=== PATIENT | male | born 1940 | race Caucasian/White ===

== ENCOUNTER 2017-05-06 09:34 | Outpatient (CLI) | payer MEDICARE, BC ==
[2017-05-06 11:28] LABS: Prothrombin Time 14.2 SEC (12.0-14.7)
[2017-05-06 11:29] LABS: PTT 27.1 SEC (22.9-36.1)
--- NOTE | 2017-05-06 14:08 | RAD ---
TWO VIEWS CHEST: HISTORY: Preoperative chest radiograph. TECHNIQUE: PA and lateral views of the chest are obtained. FINDINGS: The lungs are well aerated. No evidence of active intrathoracic disease is seen. No evidence of ef fusions, pneumonia, or pneumothorax is seen. IMPRESSION: Normal two views chest. POS: [facility]
== END 2017-05-06 09:35 | disposition home or self-care (01) ==
LOC: LABBT 09:34
PROVIDERS: ATTEND Orthopaedic Surgery Hand Surgery
DX: Z01.818 Encounter for other preprocedural examination (principal); M25.332 Other instability, left wrist
CPT/HCPCS: 71020; 85610; 85730

== ENCOUNTER 2017-05-10 07:12 | Day surgery (SDC) | payer MEDICARE, BC ==
[2017-05-06 09:59] VITALS: BMI 27.4
[2017-05-10] MEDS ORDERED: CEFAZOLIN/Water 2 GM/20 ML SYRINGE ONE (08:19)
== END 2017-05-10 10:35 | disposition home or self-care (01) ==
LOC: SDC 07:12
PROVIDERS: ATTEND Orthopaedic Surgery Hand Surgery
DX: M25.332 Other instability, left wrist (principal); Z53.8 Procedure and treatment not carried out for other reasons; M19.132 Post-traumatic osteoarthritis, left wrist; I10 Essential (primary) hypertension; N52.9 Male erectile dysfunction, unspecified; N40.0 Benign prostatic hyperplasia without lower urinary tract symptoms; Z88.8 Allergy status to other drugs, medicaments and biological substances; Z79.82 Long term (current) use of aspirin; Z79.899 Other long term (current) drug therapy; Z98.890 Other specified postprocedural states; Z82.3 Family history of stroke

== ENCOUNTER 2017-08-09 07:52 | Outpatient (CLI) | payer MEDICARE, BC ==
--- NOTE | 2017-08-09 09:31 | CT ---
CT CHEST WITH CONTRAST: HISTORY: Q79.1, diaphragmatic eventration. COMPARISON: Radiographs of 05/06/17. FINDINGS: The lungs are clear. No pneumothorax. No effusion. There is mild atelectatic change in the right lower lobe. There is right mid diaphragmatic eventrati on. There is also a focal area of left mid diaphragm eventration. Atelectasis is also present in th e left lung base. There are calcified granulomas in the lungs. Calcified subcarinal lymph nodes. The thyroid is unrem arkable. Heart size upper limits of normal. No pericardial effusion. Mild prominence of the right and left pulmonary arteries. There are multiple hypodensities throughout the liver, too small to characterize. Clavicles, sternum, and manubrium are all within normal limits. No acute rib fracture. IMPRESSION: 1. Bilateral diaphragmatic eventration. 2. Evidence of prior granulomatous disease. 3. Incompletely evaluated mild dilatation of the second portion of the duodenum appears to be due to a diverticulum. POS: [facility]
== END 2017-08-09 07:53 | disposition home or self-care (01) ==
LOC: CT 07:52
PROVIDERS: ATTEND Family Medicine
DX: Q79.1 Other congenital malformations of diaphragm (principal); D71 Functional disorders of polymorphonuclear neutrophils
CPT/HCPCS: 71260

== ENCOUNTER 2020-01-29 16:23 | Observation (INO) | payer MEDICARE, BC ==
[~2020-01-29 16:23] MED LIST: Iopamidol-370 76% 500 ML 1 ML ONE
--- NOTE | 2020-01-29 16:42 | CT ---
CT BRAIN NONCONTRAST: DATE: 01/29/2020 HISTORY: 79-year-old male with altered mental status. This level 1 stroke alert report was given verbally by Dr. Oliva to Dr. Angulo of the ER at 4:39 PM 01/09. FINDINGS: There is no evidence of acute intra-axial or extra-axial hemorrhage. There is no midline shift or any other mass effect. There is no extra-axial fluid collection. There is no evidence of obstructive hydrocephalus. Calvarium is intact. IMPRESSION: No acute intracranial findings.
[2020-01-29 16:47] LABS: #Eosinphils 0.1 thou/uL (0.0-0.7); #Monocytes 0.6 thou/uL (0.11-0.59); #Neutrophils 3.2 thou/uL (1.40-6.50); %Basophils 0.5 % (0.0-1.0); %Eosinophils 2.4 % (0.0-10.0); %Monocytes 10.6 % (0.0-10.0); %Neutrophils 53.4 % (42.0-75.0); Hemoglobin 13.5 g/dL (14.0-18.0); Mean Corpuscular HGB CONC 33.9 g/dL (32.0-36.0); Mean Corpuscular Volume 94.3 fL (78.0-98.0); Mean Platelet Volume 8.3 fL (7.4-10.4); Platelet Count 209 thou/uL (130-400); RBC Distribution Width 12.7 % (11.5-14.5); Red Blood Cell (RBC) Count 4.22 mill/uL (4.70-6.10); White Blood Cell (WBC) Count 6.1 thou/uL (4.8-10.8)
[2020-01-29 16:53] LABS: Prothrombin Time 13.2 sec (12.0-14.7)
[2020-01-29 17:16] LABS: ALT (SGPT) 34 U/L (8-55); AST (SGOT) 34 U/L (5-34); Albumin 4.6 g/dL (3.4-4.8); Alkaline Phosphatase 71 U/L (40-110); Anion Gap 15 mmol/L (10-20); BUN (Urea Nitrogen) 25 mg/dL (8.4-25.7); Bilirubin, Total 0.7 mg/dL (0.2-1.2); CK (CPK) 709 U/L (30-200); Calc. Creatinine Clearance 0 mL/min (70-130); Carbon Dioxide 23 mmol/L (23-31); Chloride 104 mmol/L (98-107); Estimated GFR-MDRD 48; Globulin 3.9 g/dL (2.4-3.5); Glucose 114 mg/dL (83-110); Potassium 3.8 mmol/L (3.5-5.1); Protein, Total 8.5 g/dL (5.8-8.1); Sodium 138 mmol/L (136-145)
--- NOTE | 2020-01-29 17:45 | CT ---
EXAM: CT angiogram head and neck with IV contrast and 3-D reconstructions PROVIDED CLINICAL HISTORY: Altered mental status. Confusion for one and a half hours. COMPARISON: None FINDINGS: Vascular calcifications are seen in the aortic arch. There is a normal arrangement of the great vesse ls at the aortic arch which are patent with minimal scattered vascular calcifications. The innominate artery and right subclavian artery are patent. Portion of the left subclavian artery i s obscured due to dense contrast within venous structures. Bilateral common carotid arteries are patent. Vascular calcifications are seen in the carotid artery bifurcations, but the bilateral internal carotid arteries are patent. Vertebral arteries are patent. There is questionable small fenestration within the base of the basila r artery. Basilar artery is otherwise patent. Bilateral posterior cerebral arteries are patent. Bilateral anterior cerebral and middle cerebral arteries are patent without evidence of a significant focal stenosis or branch occlusion. Posterior communicating artery on the right is patent. The left posterior communicating artery is not visualized and may be small or absent either which is a no rmal variant. No focal aneurysm is seen based on this exam. Vascular calcifications are seen in the visualized coronary arteries. Prominent calcified subcarinal lymph node is seen. Visualized upper lobes are clear. IMPRESSION: 1. Patent bilateral internal carotid arteries and vertebral arteries. 2. No focal stenosis or branch occlusion is seen involving the [place] or vertebrobasilar ar teries.
[2020-01-29] MEDS ORDERED: Aspirin Chewable 81 MG TAB ONE (18:09)
[2020-01-29 18:45] LABS: Acetaminophen Less than 6.0 mcg/mL (10.0-30.0); Alcohol Less than 10 mg/dL (Less than 10); Salicylate Less than 8.0 mg/dL (15.0-30.0)
[2020-01-29 19:04] LABS: Bilirubin Negative (Negative); Blood, Urine Negative (Negative); Clarity Clear (Clear); Glucose, Urine (Dipstick) Normal (Negative); Ketone, Urine Negative (Negative); Leukocyte Negative Leu/uL (Negative); Nitrite Negative (Negative); Protein, Urine (Dipstick) Negative (Neg-Trace); Specific Gravity, Urine 1.024 (1.002-1.036); Urobilinogen Normal mg/dL (Less than 2)
--- NOTE | 2020-01-29 19:22 | PDOC.HHP ---
Hospitalist HPI - History of Present Illness AMS History of Present Illness: 79-year-old gentleman with past medical history of hypertension, BPH, hyperlipidemia, and osteoarthritis presents with altered mental status. His family at bedside is able to aid in history. Patient is currently alert to self , he knows he is in the hospital and able to identify [place], [place]. Patient does not know the year. Patient does know his date, though he does not know how old he is. Patient does not know the events that have happened today, this was a rapid decline starting at about 3 PM, prior to this he was completely normal. There are no new medications, no alcohol, or other things to explain such a rapid decline. Patient's family is at bedside and able to head up operator helper in history. Normal he is a very high functioning status, he walks 4 miles per day. He gardens daily. Patient is very healthy for his age taking only medications for blood pressure and hyperlipidemia. At about 3 PM he was not acting himself family were concerned and brought him into acute care hospital for further evaluation. Patient was very forgetful and has repetitive questions and statements. In the time of my interview he tells me three times the same statement and he does not recall that he is told me already. Review of systems is ortherwise benign, no CP, SOB, Syncope, vision change, N/V/D, no black or blood in stool. No seizure type activity, loss of bowel or bladder function. He is not been previously diagnosed with dementia, and as this is a rapid decline and otherwise high functioning individuals less likely. Patient has no focal neurologic deficits, no speech deficits, or any other signs of motor abnormalities that would suggest acute CVA. Due to a low NIH score he is not a candidate for TPA. Patient admitted to medical unit with telemetry for close management and CVA rule out. Hospitalist ROS - Review of Systems All other systems reviewed; all pertinent +/- noted in HPI/Subj Hospitalist History - Past Medical History Source: patient, family, old records Cardiac: reports: HTN, Hyperlipidemia Renal/: reports: Benign prostatic enlarg. - Past Surgical History Past Surgical History: reports: Tonsillectomy, Other (Rectal fistula more than 50 years ago) - Family History Family History: reports: hypertension - Social History Smoking Status: Never smoker Alcohol: reports: None Drugs: reports: none Living Situation: With Family Domestic Violence: Negative Activity level: independent ambulation - Exam General Appearance: NAD, awake alert Eye: PERRL ENT: normocephalic atraumatic, moist mucosa Neck: supple, symmetric, no lymphadenopathy Heart: RRR, no murmur, no gallops, no rubs, normal peripheral pulses Respiratory: CTAB, no wheezes, no rales, no ronchi, normal chest expansion, no tachypnea Gastrointestinal: soft, non-tender, non-distended, normal bowel sounds, no palpable masses, no guarding, no rigidity Extremities: no edema Skin: no lesions, no rashes Neurological: cranial nerve grossly intact, normal sensation to touch, no weakness, no focal deficits. negative: facial droop, hemiplegia, vision deficit Musculoskeletal: normal tone, normal strength Psychiatric: normal affect, normal behavior, oriented to person, oriented to place Psychiatric - other findings: Not oriented to situation Hospitalist Results - Labs Result Diagrams: 01/29/20 16:37 01/29/20 16:37 Lab results: WBC 6.1 thou/uL (4.8-10.8) 01/29/20 16:37 Hgb 13.5 g/dL (14.0-18.0) L 01/29/20 16:37 Hct 39.8 % (42.0-52.0) L 01/29/20 16:37 MCV 94.3 fL (78.0-98.0) 01/29/20 16:37 Plt Count 209 thou/uL (130-400) 01/29/20 16:37 Neutrophils % 53.4 % (42.0-75.0) 01/29/20 16:37 Sodium 138 mmol/L (136-145) 01/29/20 16:37 Potassium 3.8 mmol/L (3.5-5.1) 01/29/20 16:37 Chloride 104 mmol/L (98-107) 01/29/20 16:37 Carbon Dioxide 23 mmol/L (23-31) 01/29/20 16:37 BUN 25 mg/dL (8.4-25.7) 01/29/20 16:37 Creatinine 1.43 mg/dL (0.7-1.3) H 01/29/20 16:37 Glucose 114 mg/dL (83-110) H 01/29/20 16:37 Calcium 10.0 mg/dL (7.8-10.44) 01/29/20 16:37 Total Bilirubin 0.7 mg/dL (0.2-1.2) 01/29/20 16:37 AST 34 U/L (5-34) 01/29/20 16:37 ALT 34 U/L (8-55) 01/29/20 16:37 Alkaline Phosphatase 71 U/L (40-110) 01/29/20 16:37 Creatine Kinase 709 U/L (30-200) H 01/29/20 16:37 Troponin I 0.012 ng/mL (< 0.028) 01/29/20 16:37 Serum Total Protein 8.5 g/dL (5.8-8.1) H 01/29/20 16:37 Albumin 4.6 g/dL (3.4-4.8) 01/29/20 16:37 Urine Ketones Negative mg/dL (Negative) 01/29/20 18:36 Urine Blood Negative (Negative) 01/29/20 18:36 Urine Nitrite Negative (Negative) 01/29/20 18:36 Ur Leukocyte Esterase Negative Diana/uL (Negative) 01/29/20 18:36 - Radiology Interpretation CT scan - head Status: image reviewed by or Hospitalist H&P A/P - Problem (1) AMS (altered mental status) Code(s): R41.82 - ALTERED MENTAL STATUS, UNSPECIFIED Status: Acute (2) CVA (cerebral vascular accident) Code(s): I63.9 - CEREBRAL INFARCTION, UNSPECIFIED Status: Acute (3) HTN (hypertension) Code(s): I10 - ESSENTIAL (PRIMARY) HYPERTENSION Status: Acute (4) HLD (hyperlipidemia) Code(s): E78.5 - HYPERLIPIDEMIA, UNSPECIFIED Status: Acute (5) BPH (benign prostatic hyperplasia) Code(s): N40.0 - BENIGN PROSTATIC HYPERPLASIA WITHOUT LOWER URINRY TRACT SYMP Status: Acute (6) Osteoarthritis Code(s): M19.90 - UNSPECIFIED OSTEOARTHRITIS, UNSPECIFIED SITE Status: Acute - Plan Plan: Plan: admit to stroke unit neurology consultation, recommendations appreciated not a tPA candidate secondary to low NIH score MRI brain to rule out echocardiogram completed CT angiography of the head and neck, no hemodynamically significant stenosis metabolic workup was benign renal function is at his baseline creatinine 1.4 continue other home medications is able blood pressure control blood sugar control GI prophylaxis DVT prophylaxis- SCDs
[2020-01-29] MEDS ORDERED: Acetaminophen 500 MG TAB PO PRN (19:44)
[2020-01-29] MEDS ORDERED: Ondansetron PF 4 MG/2 ML Vial IVP PRN (19:46)
[2020-01-29] MEDS ORDERED: Loperamide HCl 2 MG CAP PO PRN (19:46)
[2020-01-29] MEDS ORDERED: Acetaminophen 325 MG TAB PO PRN (19:46)
[2020-01-29] MEDS ORDERED: Senokot S 8.6-50 MG TAB PO PRN (19:46)
[2020-01-29] MEDS ORDERED: Benzonatate 100 MG CAP PO PRN (19:48)
[2020-01-29] MEDS ORDERED: Docusate 100 MG CAP PO PRN (19:48)
[2020-01-29] MEDS ORDERED: Labetalol HCl 100 MG/20 ML VIAL SLOW IVP PRN (19:48)
[2020-01-29] MEDS ORDERED: diphenhydrAMINE 25 MG CAP PO PRN (19:49)
[2020-01-29 21:08] LABS: Troponin I 0.013 ng/mL (< 0.028)
[2020-01-29] MEDS: Amlodipine 10 MG TAB PO SCH (21:21)
[2020-01-29] MEDS: Melatonin 3 MG TAB PO SCH (21:22)
[2020-01-29] MEDS: Famotidine 20 MG TAB PO SCH (21:22)
[2020-01-29 23:16] LABS: Troponin I 0.014 ng/mL (< 0.028)
[2020-01-30 02:40] VITALS: BMI 28.4
[2020-01-30 04:55] LABS: #Eosinphils 0.1 thou/uL (0.0-0.7); #Lymphocytes 1.2 thou/uL (1.20-3.40); #Monocytes 0.4 thou/uL (0.11-0.59); #Neutrophils 2.7 thou/uL (1.40-6.50); %Basophils 0.8 % (0.0-1.0); %Eosinophils 2.5 % (0.0-10.0); %Lymphocytes 27.6 % (21.0-51.0); %Monocytes 9.2 % (0.0-10.0); %Neutrophils 59.9 % (42.0-75.0); Hemoglobin 12.8 g/dL (14.0-18.0); Mean Corpuscular HGB CONC 32.7 g/dL (32.0-36.0); Mean Corpuscular Hemoglobin 30.7 pg (27.0-31.0); Mean Corpuscular Volume 93.7 fL (78.0-98.0); Platelet Count 178 thou/uL (130-400); RBC Distribution Width 12.6 % (11.5-14.5); Red Blood Cell (RBC) Count 4.18 mill/uL (4.70-6.10); White Blood Cell (WBC) Count 4.4 thou/uL (4.8-10.8)
[2020-01-30 05:17] LABS: Anion Gap 12 mmol/L (10-20); BUN (Urea Nitrogen) 19 mg/dL (8.4-25.7); Calc. Creatinine Clearance 69 mL/min (70-130); Calcium 9.6 mg/dL (7.8-10.44); Carbon Dioxide 23 mmol/L (23-31); Chloride 107 mmol/L (98-107); Estimated GFR-MDRD 68; Glucose 103 mg/dL (83-110); Potassium 3.6 mmol/L (3.5-5.1); Sodium 138 mmol/L (136-145)
[2020-01-30] MEDS ORDERED: Atorvastatin Calcium 20 MG TAB PO SCH (09:00)
[2020-01-30] MEDS ORDERED: Aspirin Chewable 81 MG TAB PO SCH (09:00)
[2020-01-30] MEDS: Doxazosin Mesylate 4 MG TAB PO SCH (09:01)
[2020-01-30] MEDS: Multivitamin W/ Minerals 1 TAB PO SCH (09:01)
[2020-01-30] MEDS: Hydrochlorothiazide 25 MG TAB PO SCH (09:01)
[2020-01-30] MEDS: Losartan 25 MG TAB PO SCH (09:01)
[2020-01-30] MEDS: Famotidine 20 MG TAB PO SCH ×2 (09:01→21:11)
--- NOTE | 2020-01-30 10:23 | MRI ---
MRI BRAIN WITHOUT CONTRAST: HISTORY: Altered mental status, level 1 stroke CORRELATION: CT scan from 01/29/2020. FINDINGS: No restricted diffusion is seen. There are few foci of T2 prolongation in the periventricular white m atter, consistent with chronic small vessel ischemic disease. The ventricular size is appropriate and the basilar cisterns are patent. No evidence of acute infarct, hemorrhage, midline shift or abnormal extra-axial fluid collections is seen. There is mucosal disease in the paranasal sinuses. IMPRESSION: No evidence of acute intracranial process.
--- NOTE | 2020-01-30 16:22 | CON ---
NEUROLOGY CONSULTATION DATE OF CONSULTATION: 01/30/2020 REASON FOR CONSULTATION: Altered mental status. HISTORY OF PRESENT ILLNESS: Mr. Ildefonso Nathan is an 79-year-old male with medical history significant for hypertension, hyperlipidemia, benign prostatic hyperplasia, and osteoarthritis, presented to the emergency room with altered mental status. The patient was brought to the emergency room by his family member. In the emergency room, he was only alert and oriented to himself and was confused. According to the family member, at 3 p.m., he was not acting himself and was extremely forgetful , so they decided to bring him to the emergency room for further evaluation. No documented focal paresthesias, focal weakness, nausea, vomiting, headache, chest pain, shortness of breath, blurred vision, or loss of vision was reported. The patient does not recall the whole event, but knew he was unable to answer questions appropriately yesterday. He has no history of dementia. In the emergency room , his NIH stroke scale was 1, so he was not a tPA candidate and was admitted for further evaluation. REVIEW OF SYSTEMS: All 10 systems were reviewed and were negative except for the pertinent positives and negatives mentioned in the HPI. PAST MEDICAL HISTORY: Hypertension, hyperlipidemia, benign prostatic hyperplasia. PAST SURGICAL HISTORY: Tonsillectomy, rectal fistula repair. FAMILY HISTORY: Significant for hypertension. SOCIAL HISTORY: Denies smoking, alcohol, or illegal drug use. He lives with family and was able to ambulate independently at home. - Objective Vital Signs & Weight: Vital Signs (12 hours) Temp Pulse Pulse Pulse Resp BP BP 01/30/20 15:44 60 68 143/86 H 150/85 H 01/30/20 15:42 98.4 F 61 18 01/30/20 11:34 98.1 F 65 16 01/30/20 08:55 66 65 148/84 H 144/89 H 01/30/20 07:58 98.0 F 64 18 BP Pulse Ox 01/30/20 15:44 01/30/20 15:42 143/86 H 93 L 01/30/20 11:34 147/88 H 92 L 01/30/20 08:55 01/30/20 07:58 149/87 H 96 Weight Weight 192 lb 9 oz I&O: 01/29/20 01/30/20 01/31/20 06:59 06:59 06:59 Intake Total 240 600 Balance 240 600 Active Medications Generic Name Dose Route Start Last Admin Trade Name Elis PRN Reason Stop Dose Admin Amlodipine Besylate 10 mg 01/29/20 21:00 01/29/20 21:21 Norvasc PO 10 mg HS DANIEL Administration Doxazosin Mesylate 4 mg 01/30/20 09:00 01/30/20 09:01 Cardura PO 4 mg DAILY DANIEL Administration Famotidine 20 mg 01/29/20 21:00 01/30/20 09:01 Pepcid PO 20 mg BID DANIEL Administration Hydrochlorothiazide 25 mg 01/30/20 09:00 01/30/20 09:01 Hydrochlorothiazide PO 25 mg QAM DANIEL Administration Iron/Minerals/Multivitamins 1 tab 01/30/20 09:00 01/30/20 09:01 Theragran M PO 1 tab DAILY DANIEL Administration Losartan Potassium 100 mg 01/30/20 09:00 01/30/20 09:01 Cozaar PO 100 mg DAILY DANIEL Administration Melatonin 9 mg 01/29/20 21:00 01/29/20 21:22 Melatonin PO 9 mg HS DANIEL Administration PHYSICAL EXAMl General Appearance: NAD, awake alert Eye: PERRL ENT: normocephalic atraumatic, moist mucosa Neck: supple, symmetric, no lymphadenopathy Heart: RRR, no murmur, no gallops, no rubs, normal peripheral pulses Respiratory: CTAB, no wheezes, no rales, no ronchi, normal chest expansion, no tachypnea Gastrointestinal: soft, non-tender, non-distended, normal bowel sounds, no palpable masses, no guarding, no rigidity Extremities: no edema Skin: no lesions, no rashes Neurological: Mental status; the patient is alert and oriented to person, place , and time. Speech is clear. Recent and remote memory, intact. Fund of knowledge is appropriate. Cranial nerves II through XII are intact. Motor, muscle tone and bulk are normal. Strength 5/5 bilaterally. Sensory intact. Cerebellar, finger-nose testing intact. Gait deferred due to the patient's safety reason. DATA REVIEWED: I reviewed the labs, which showed mild anemia, hemoglobin 13.5 and hematocrit 39.8, and hyperglycemia with 114 blood glucose, and creatinine was 1.43. Rest of the labs was unremarkable. I reviewed the head CT, which was negative for acute intracranial process. 01/29/20 16:37 Lab results: WBC 6.1 thou/uL (4.8-10.8) 01/29/20 16:37 Hgb 13.5 g/dL (14.0-18.0) L 01/29/20 16:37 Hct 39.8 % (42.0-52.0) L 01/29/20 16:37 MCV 94.3 fL (78.0-98.0) 01/29/20 16:37 Plt Count 209 thou/uL (130-400) 01/29/20 16:37 Neutrophils % 53.4 % (42.0-75.0) 01/29/20 16:37 Sodium 138 mmol/L (136-145) 01/29/20 16:37 Potassium 3.8 mmol/L (3.5-5.1) 01/29/20 16:37 Chloride 104 mmol/L (98-107) 01/29/20 16:37 Carbon Dioxide 23 mmol/L (23-31) 01/29/20 16:37 BUN 25 mg/dL (8.4-25.7) 01/29/20 16:37 Creatinine 1.43 mg/dL (0.7-1.3) H 01/29/20 16:37 Glucose 114 mg/dL (83-110) H 01/29/20 16:37 Calcium 10.0 mg/dL (7.8-10.44) 01/29/20 16:37 Total Bilirubin 0.7 mg/dL (0.2-1.2) 01/29/20 16:37 AST 34 U/L (5-34) 01/29/20 16:37 ALT 34 U/L (8-55) 01/29/20 16:37 Alkaline Phosphatase 71 U/L (40-110) 01/29/20 16:37 Creatine Kinase 709 U/L (30-200) H 01/29/20 16:37 Troponin I 0.012 ng/mL (< 0.028) 01/29/20 16:37 Serum Total Protein 8.5 g/dL (5.8-8.1) H 01/29/20 16:37 Albumin 4.6 g/dL (3.4-4.8) 01/29/20 16:37 Urine Ketones Negative mg/dL (Negative) 01/29/20 18:36 Urine Blood Negative (Negative) 01/29/20 18:36 Urine Nitrite Negative (Negative) 01/29/20 18:36 Ur Leukocyte Esterase Negative Diana/uL (Negative) 01/29/20 18:36 - Radiology Interpretation CT scan - head Status: image reviewed by md Hospitalist H&P A/P - Problem (1) AMS (altered mental status) Code(s): R41.82 - ALTERED MENTAL STATUS, UNSPECIFIED Status: Acute (2) CVA (cerebral vascular accident) Code(s): I63.9 - CEREBRAL INFARCTION, UNSPECIFIED Status: Acute (3) HTN (hypertension) Code(s): I10 - ESSENTIAL (PRIMARY) HYPERTENSION Status: Acute (4) HLD (hyperlipidemia) Code(s): E78.5 - HYPERLIPIDEMIA, UNSPECIFIED Status: Acute (5) BPH (benign prostatic hyperplasia) Code(s): N40.0 - BENIGN PROSTATIC HYPERPLASIA WITHOUT LOWER URINRY TRACT SYMP Status: Acute (6) Osteoarthritis Code(s): M19.90 - UNSPECIFIED OSTEOARTHRITIS, UNSPECIFIED SITE Status: Acute ASSESSMENT AND PLAN: Mr. Ildefonso Nathan is an 79-year-old male, who was consulted for altered mental status. The patient is now back to his baseline. Concern about transient ischemic attack since he has risk factors versus seizure which seems low on the differential. MRI of the brain reviewed, which was negative for acute intracranial pathology or bleed. CT angiogram of the head and neck reviewed, which did not reveal any hemodynamically significant stenosis. 2D echo completed, results pending. EEG completed, which was negative for underlying seizure activity. Continue home medications, strict control of blood pressure and blood glucose. Neuro checks every 4 hours. Continue home medications, telemetry. Continue medical management per primary team, PT/OT. Continue aspirin and statin for secondary stroke prevention. We will continue to follow. Thank you for the consult. Job ID: [id number] MTDD
--- NOTE | 2020-01-30 17:10 | PDOC.HOSPP ---
- Subjective Subjective: Seen and examined. Patient is now alert and oriented times three, he still has no recollection of yesterday. He currently knows the situation and understands that he was not himself yesterday. Denies pain. No focal neurologic deficits. Stroke workup coming back benign, likely transient ischemic attack. EEG. ongoing , official read pending. Echo pending. I called his Mitzi at [phone], time was given for questions, all answered in detail. - Objective Vital Signs & Weight: Vital Signs (12 hours) Temp Pulse Pulse Pulse Resp BP BP 01/30/20 15:44 60 68 143/86 H 150/85 H 01/30/20 15:42 98.4 F 61 18 01/30/20 11:34 98.1 F 65 16 01/30/20 08:55 66 65 148/84 H 144/89 H 01/30/20 07:58 98.0 F 64 18 BP Pulse Ox 01/30/20 15:44 01/30/20 15:42 143/86 H 93 L 01/30/20 11:34 147/88 H 92 L 01/30/20 08:55 01/30/20 07:58 149/87 H 96 Weight Weight 192 lb 9 oz I&O: 01/29/20 01/30/20 01/31/20 06:59 06:59 06:59 Intake Total 240 600 Balance 240 600 Result Diagrams: 01/30/20 04:36 01/30/20 04:36 Radiology Reviewed by me: Yes Hospitalist ROS - Review of Systems All other systems reviewed; all pertinent +/- noted in HPI/Subj - Medication Medications: Active Medications Generic Name Dose Route Start Last Admin Trade Name Elis PRN Reason Stop Dose Admin Amlodipine Besylate 10 mg 01/29/20 21:00 01/29/20 21:21 Norvasc PO 10 mg HS DANIEL Administration Doxazosin Mesylate 4 mg 01/30/20 09:00 01/30/20 09:01 Cardura PO 4 mg DAILY DANIEL Administration Famotidine 20 mg 01/29/20 21:00 01/30/20 09:01 Pepcid PO 20 mg BID DANIEL Administration Hydrochlorothiazide 25 mg 01/30/20 09:00 01/30/20 09:01 Hydrochlorothiazide PO 25 mg QAM DANIEL Administration Iron/Minerals/Multivitamins 1 tab 01/30/20 09:00 01/30/20 09:01 Theragran M PO 1 tab DAILY DANIEL Administration Losartan Potassium 100 mg 01/30/20 09:00 01/30/20 09:01 Cozaar PO 100 mg DAILY DANIEL Administration Melatonin 9 mg 01/29/20 21:00 01/29/20 21:22 Melatonin PO 9 mg HS DANIEL Administration - Exam General Appearance: NAD, awake alert Eye: PERRL, anicteric sclera ENT: normocephalic atraumatic, moist mucosa Neck: supple, symmetric, no lymphadenopathy Heart: RRR, no murmur, no gallops, no rubs, normal peripheral pulses Respiratory: CTAB, no wheezes, no rales, no ronchi, normal chest expansion Gastrointestinal: soft, non-tender, no guarding, no rigidity Extremities: no edema Skin: no lesions, no rashes Neurological: cranial nerve grossly intact, normal sensation to touch, no weakness, no focal deficits. negative: facial droop, speech deficit, vision deficit Psychiatric: normal affect, normal behavior, A&O x 3 Hosp A/P (1) AMS (altered mental status) Code(s): R41.82 - ALTERED MENTAL STATUS, UNSPECIFIED Status: Acute (2) CVA (cerebral vascular accident) Code(s): I63.9 - CEREBRAL INFARCTION, UNSPECIFIED Status: Acute (3) HTN (hypertension) Code(s): I10 - ESSENTIAL (PRIMARY) HYPERTENSION Status: Acute (4) HLD (hyperlipidemia) Code(s): E78.5 - HYPERLIPIDEMIA, UNSPECIFIED Status: Acute (5) BPH (benign prostatic hyperplasia) Code(s): N40.0 - BENIGN PROSTATIC HYPERPLASIA WITHOUT LOWER URINRY TRACT SYMP Status: Acute (6) Osteoarthritis Code(s): M19.90 - UNSPECIFIED OSTEOARTHRITIS, UNSPECIFIED SITE Status: Acute (7) DORY (acute kidney injury) Code(s): N17.9 - ACUTE KIDNEY FAILURE, UNSPECIFIED Status: Acute - Plan Plan: medical unit with telemetry, stroke unit neurology consultation, recommendations appreciated not ATP a candidate secondary to low NIH score MRI brain negative for acute CVA patient likely suffering from transient ischemic attack adjusts CVA regimen: -aspirin 325 -atorvastatin 40 mg -losartan 100 mg echocardiogram pending completed CT angiography head and neck, no hemodynamically significant stenosis electroencephalogram is pending metabolic workup is benign mild acute kidney injury present on admission, has resolved with IV fluids and oral intake continue home medications as able blood pressure control blood sugar control G.I. prophylaxis DVT prophylaxis
[2020-01-30] MEDS ORDERED: Atorvastatin Calcium 40 MG TAB PO SCH (21:00)
[2020-01-30] MEDS: Melatonin 3 MG TAB PO SCH (21:11)
[2020-01-30] MEDS: Amlodipine 10 MG TAB PO SCH (21:12)
[2020-01-31 07:49] VITALS: BP 134/82; TEMP 98.1
[2020-01-31] MEDS: Famotidine 20 MG TAB PO SCH (08:30)
[2020-01-31] MEDS: Hydrochlorothiazide 25 MG TAB PO SCH (08:30)
[2020-01-31] MEDS: Doxazosin Mesylate 4 MG TAB PO SCH (08:30)
[2020-01-31] MEDS: Multivitamin W/ Minerals 1 TAB PO SCH (08:30)
[2020-01-31] MEDS: Losartan 25 MG TAB PO SCH (08:31)
[2020-01-31] MEDS ORDERED: Aspirin 325 MG TAB PO SCH (09:00)
--- NOTE | 2020-01-31 11:55 | PDOC.HOSPP ---
- Subjective Encounter Date: 01/31/20 Subjective: NEUROLOGY PROGRESS NOTE Patient awake and alert. Ready to leave for home. MRI brain and EEG are negative. - Objective Vital Signs & Weight: Vital Signs (12 hours) Temp Pulse Resp BP Pulse Ox 01/31/20 07:46 98.1 F 67 20 134/82 96 01/31/20 04:00 98.5 F 73 17 109/65 96 01/31/20 00:13 98.4 F 67 18 122/74 97 Weight Weight 192 lb 9 oz I&O: 01/30/20 01/31/20 02/01/20 06:59 06:59 06:59 Intake Total 240 1370 240 Balance 240 1370 240 Result Diagrams: 01/30/20 04:36 01/30/20 04:36 Radiology Reviewed by me: Yes EKG Reviewed by me: Yes Hospitalist ROS - Review of Systems Constitutional: denies: fever, chills, sweats, weakness, malaise, other Eyes: denies: pain, vision change, conjunctivae inflammation, eyelid inflammation, redness, other ENT: denies: ear pain, ear discharge, nose pain, nose discharge, nose congestion , mouth pain, mouth swelling, throat pain, throat swelling, other Respiratory: denies: cough, dry, shortness of breath, hemoptysis, SOB with excertion, pleuritic pain, sputum, wheezing, other Cardiovascular: denies: chest pain, palpitations, orthopnea, paroxysmal noc. dyspnea, edema, light headedness, other Gastrointestinal: denies: nausea, vomiting, abdominal pain, diarrhea, constipation, melena, hematochezia, other Genitourinary: denies: dysuria, frequency, incontinence, hematuria, retention, other - Medication Medications: Active Medications Generic Name Dose Route Start Last Admin Trade Name Freq PRN Reason Stop Dose Admin Amlodipine Besylate 10 mg 01/29/20 21:00 01/30/20 21:12 Norvasc PO 10 mg HS DANIEL Administration Aspirin 325 mg 01/31/20 09:00 01/31/20 08:31 Aspirin PO 325 mg DAILY DANIEL Administration Atorvastatin Calcium 40 mg 01/30/20 21:00 01/30/20 21:11 Lipitor PO 40 mg HS DANIEL Administration Doxazosin Mesylate 4 mg 01/30/20 09:00 07/23/20 08:30 Cardura PO 4 mg DAILY DANIEL Administration Famotidine 20 mg 01/29/20 21:00 01/31/20 08:30 Pepcid PO 20 mg BID DANIEL Administration Hydrochlorothiazide 25 mg 01/30/20 09:00 01/31/20 08:30 Hydrochlorothiazide PO 25 mg QAM DANIEL Administration Iron/Minerals/Multivitamins 1 tab 01/30/20 09:00 01/31/20 08:30 Theragran M PO 1 tab DAILY DANIEL Administration Losartan Potassium 100 mg 01/30/20 09:00 01/31/20 08:31 Cozaar PO 100 mg DAILY DANIEL Administration Melatonin 9 mg 01/29/20 21:00 01/30/20 21:11 Melatonin PO 9 mg HS DANIEL Administration - Exam General Appearance: awake alert Eye: PERRL ENT: normocephalic atraumatic Neck: supple Heart: RRR Respiratory: CTAB Gastrointestinal: soft Extremities: no cyanosis Skin: normal turgor Neurological: cranial nerve grossly intact, normal sensation to touch, no weakness, no focal deficits, no new deficit Musculoskeletal: normal tone, normal strength, no muscle wasting Hosp A/P (1) AMS (altered mental status) Code(s): R41.82 - ALTERED MENTAL STATUS, UNSPECIFIED Status: Acute (2) DORY (acute kidney injury) Code(s): N17.9 - ACUTE KIDNEY FAILURE, UNSPECIFIED Status: Acute (3) BPH (benign prostatic hyperplasia) Code(s): N40.0 - BENIGN PROSTATIC HYPERPLASIA WITHOUT LOWER URINRY TRACT SYMP Status: Acute (4) HLD (hyperlipidemia) Code(s): E78.5 - HYPERLIPIDEMIA, UNSPECIFIED Status: Acute (5) HTN (hypertension) Code(s): I10 - ESSENTIAL (PRIMARY) HYPERTENSION Status: Acute - Plan 79 year old consulted for altered mental status. Clinically stable and back to baseline. Most likely TIA versus metabolic encephalopathy. MRI brain reviewed and was negative for acute intracranial process. EEG reviewed and was negative for seizure activity. Continue aspirin and statin for secondary stroke prevention. Continue home medications. Plan and results discussed with the patient.
--- NOTE | 2020-01-31 12:14 | EEG ---
DATE OF SERVICE: 01/30/2020 ATTENDING PHYSICIAN: Mónica Vera MD This EEG was performed using 24-channel [employer] video digital EEG machine with 24-disk electrodes. This was an extended 2 hours 5 minutes of inpatient video EEG recording. Digital analysis of the EEG was done for spike and seizure detection, which revealed no abnormalities. BACKGROUND: The posterior background rhythm is 8 Hz. This is a nonsustained posterior background rhythm and minimal reactivity seen with eye opening and closure. HYPERVENTILATION: Not performed. PHOTIC STIMULATION: Not performed. SLEEP: Drowsiness and sleep were observed. EEG DIAGNOSIS: Occasional irregular theta activity seen during the recording. CLINICAL INTERPRETATION: This EEG is consistent with mild generalized nonspecific cerebral dysfunction. No ictal or interictal epileptiform abnormalities seen during the recording. Job ID: [id number]
--- NOTE | 2020-01-31 21:41 | DIS ---
DATE OF ADMISSION: 01/29/2020 DATE OF DISCHARGE: 01/31/2020 REASON FOR HOSPITALIZATION: Altered mental status. SIGNIFICANT FINDINGS: The patient was found to have acute transient ischemic attack. PROCEDURES PERFORMED AND TREATMENTS RENDERED: Mr. Nathan is a very pleasant 79-year-old gentleman who presented to [facility] on 01/29/2020, please see full history and physical for details. The patient had an acute episode of confusion that was isolated starting at about 3:00 p.m. on the day of admission. When I found the patient in the emergency department, he was talking in conversant though he was asking the same questions repeatedly and he was not acting like himself per his family, who were at bedside. I had a long discussion with the patient and his family on the day of admission, the following day on 01/30/2020, the patient had no recollection of the emergency department, talking with him for nearly an hour, or the activities of the day. By the morning of 01/30/2020, the patient's mental status had return to his normal baseline. At no point before the hospitalization or after he had been admitted to the hospital, did he have any focal neurologic motor deficits. The patient had no weakness in the arms or legs, he had no trouble speaking, he had no loss of sensation, he had no changes in vision, he had no syncope, he had no spastic type movements, he did not bite his tongue, he does not lose control of his bowel or bladder. The patient was admitted to the Stroke Unit for close management. Neurology was consulted, please see full consultation notes and progress notes from Dr. Vera for full details. The patient had an MRI of the brain, please see full report for details, there was no evidence of acute intracranial process. The patient had an electroencephalogram, please see full report for details, EEG was negative for spike and wave morphology, and there was no overt seizure activity. The patient was monitored until 01/31/2020 and he continued to be in good health. The patient had an echocardiogram, please see full report for details, the patient having a preserved ejection fraction with 60% to 65% and grade 1/3 diastolic dysfunction. Please see full report from echocardiogram for details. 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 The patient's metabolic workup was benign. The patient had a CT angiography of the head and neck, please see full report for details, there was no hemodynamically significant stenosis or acute pathology. The patient was recommended safe for discharge by Neurology on 01/31/2020. The patient's medications were adjusted including increasing his aspirin to 325 mg from 81 mg for CVA prevention. I increased his atorvastatin from 20 mg at bedtime to 40 mg at bedtime. I recommended to the patient that he needs to follow up with his primary care physician in the next 5 to 7 days and he should follow up with neurologist in the next 1 to 2 months. CONDITION ON DISCHARGE: Stable. SPECIFIC INSTRUCTIONS FOR THE PATIENT/FAMILY: 1. The patient recommended to follow up with primary care physician in the next 5 to 7 days. 2. The patient recommended to follow up with Neurology in the next 1 to 2 months. 3. The patient recommended to take all medications as directed. 4. The patient recommended to return to acute care hospital immediately if signs or symptoms return, worsen, or any other new symptoms occur. DISCHARGE MEDICATIONS: Please see full discharge medication list for details. TIME SPENT: Greater than 34 minutes spent coordinating care and discharge process for this patient. Job ID: [id number]
== END 2020-01-31 11:59 | disposition home or self-care (01) ==
LOC: ERS 16:23 → ERHOLD 18:10 → 2SE 01-30 00:03
PROVIDERS: ADMIT Internal Medicine; ATTEND Internal Medicine
DX: G45.9 Transient cerebral ischemic attack, unspecified (principal); I10 Essential (primary) hypertension; E78.5 Hyperlipidemia, unspecified; N40.0 Benign prostatic hyperplasia without lower urinary tract symptoms; M19.90 Unspecified osteoarthritis, unspecified site; Z79.82 Long term (current) use of aspirin; Z79.899 Other long term (current) drug therapy; Z88.8 Allergy status to other drugs, medicaments and biological substances
CPT/HCPCS: 36415; 36416; 70450; 70496; 70498; 70551; 80048; 80053; 80307; 81003; 82550; 84443; 84484; 85025; 85610; 85730; 87086; 93005; 93306; 95712; 95819; 95957; 96360; G0378; Q9967

== ENCOUNTER 2020-06-26 21:33 | Emergency (ER) | payer MEDICARE, BC ==
--- NOTE | 2020-06-28 14:50 | EKG ---
Test Reason : Blood Pressure : / mmHG Vent. Rate : 063 BPM Atrial Rate : 063 BPM P-R Int : 174 ms QRS Dur : 176 ms QT Int : 448 ms P-R-T Axes : -04 -42 -04 degrees QTc Int : 458 ms Sinus rhythm with sinus arrhythmia with Fusion complexes Left axis deviation Right bundle branch block Inferior infarct , age undetermined Abnormal ECG Confirmed by OLIVA SIN M.D. ([id number]), legal editor FAMILIA CHIU ([id number]) on 06/28/2020 2:50:45 PM Referred By: Confirmed By:OLIVA SIN M.D.
== END 2020-06-26 23:35 | disposition home or self-care (01) ==
LOC: ERS 21:33
DX: I10 Essential (primary) hypertension (principal); E78.5 Hyperlipidemia, unspecified; Z86.73 Personal history of transient ischemic attack (TIA), and cerebral infarction without residual deficits; Z79.82 Long term (current) use of aspirin; Z79.899 Other long term (current) drug therapy
CPT/HCPCS: 93005

== ENCOUNTER 2020-08-14 08:03 | Outpatient (CLI) | payer MEDICARE, BC ==
--- NOTE | 2020-08-14 08:56 | CT ---
CT abdomen and pelvis with IV and oral contrast HISTORY: Lower abdomen pain. FINDINGS: The lung bases are clear. Calcified granulomata of the mediastinum consistent with healed g ranulomatous disease. Small hyperdense stone is present within the dependent portion of the gallbladder lumen. Cysts are scattered about the cortex of each kidney and the liver. Liver cysts measure up to 1.2 cm a t the right lobe anterior segment dome. Renal cysts measure up to 2.1 cm greatest diameter at the inferior pole of the right kidney and 3.3 cm the inferior pole of the left kidney. At the inferior aspect of the pancreatic tail is a 1.0 cm low density, likely cystic lesion. No solid masses are reliably demonstrated. A lobular gas and contrast-containing pocket projecting medially from the second portion of the duode num is 3.8 cm greatest diameter. Small diverticula arise from the colon. No evidence of inflammation. No evidence of bowel obstruction. Degenerative changes lumbar spine, including minimal degenerative spondylolisthesis at the L4-5 level . IMPRESSION : Cholelithiasis. No acute abnormalities are demonstrated. Diverticulosis of the colon and duodenum. No evidence of diverticulitis. Simple cysts of the liver, kidneys, and pancreas. No evidence of complication.
[2020-08-14] MEDS ORDERED: Iopamidol 370 76% 100 ML VIAL ONE (10:05)
== END 2020-08-14 08:04 | disposition home or self-care (01) ==
LOC: BICCT 08:03
PROVIDERS: ATTEND Family Medicine
DX: R10.84 Generalized abdominal pain (principal); K57.10 Diverticulosis of small intestine without perforation or abscess without bleeding; R14.0 Abdominal distension (gaseous); I10 Essential (primary) hypertension; K57.90 Diverticulosis of intestine, part unspecified, without perforation or abscess without bleeding; K80.20 Calculus of gallbladder without cholecystitis without obstruction; K57.30 Diverticulosis of large intestine without perforation or abscess without bleeding
CPT/HCPCS: 74177; 82565

== ENCOUNTER 2021-12-18 08:42 | Outpatient (CLI) | payer MEDICARE, BC | END 2021-12-18 08:43 | disposition home or self-care (01) | LOC: TBSIIMAG 08:42 | PROVIDERS: ATTEND Family Medicine | DX: H49.22 Sixth [abducent] nerve palsy, left eye (principal); R29.818 Other symptoms and signs involving the nervous system; H53.9 Unspecified visual disturbance; I10 Essential (primary) hypertension | CPT/HCPCS: 70551 ==

== ENCOUNTER 2022-01-14 12:27 | Outpatient (CLI) | payer MEDICARE, BC | END 2022-01-14 12:28 | disposition home or self-care (01) | LOC: SCSMRI 12:27 | PROVIDERS: ATTEND Nurse Practitioner Family | DX: H49.22 Sixth [abducent] nerve palsy, left eye (principal); H53.9 Unspecified visual disturbance; I10 Essential (primary) hypertension; R29.818 Other symptoms and signs involving the nervous system; I35.1 Nonrheumatic aortic (valve) insufficiency; I49.3 Ventricular premature depolarization; R42 Dizziness and giddiness | CPT/HCPCS: 70553 ==

== ENCOUNTER 2023-02-23 15:10 | Outpatient (CLI) | payer MEDICARE, BC | END 2023-02-23 15:11 | disposition home or self-care (01) | LOC: RAD 15:10 | PROVIDERS: ATTEND Specialist | DX: M70.42 Prepatellar bursitis, left knee (principal) ==

== ENCOUNTER 2023-12-27 08:24 | Outpatient (CLI) | payer MEDICARE, BC ==
[2023-12-27 09:36] LABS: Hematocrit 40.7 % (38.8-50.0); Hemoglobin 13.9 g/dL (13.5-17.5); Mean Corpuscular HGB CONC 34.2 g/dL (32.0-36.0); Mean Corpuscular Hemoglobin 30.4 pg (27.0-33.0); Mean Corpuscular Volume 89.1 fL (81.2-95.1); Platelet Count 212 10x3/uL (150-450); Red Blood Cell (RBC) Count 4.57 10x6/uL (4.32-5.72); White Blood Cell (WBC) Count 9.6 10x3/uL (3.5-10.5)
[2023-12-27 11:10] LABS: Anion Gap 14 mmol/L (10-20); BUN (Urea Nitrogen) 22 mg/dL (8.4-25.7); Calc. Creatinine Clearance 0 mL/min (70-130); Calcium 9.9 mg/dL (7.8-10.44); Carbon Dioxide 23 mmol/L (23-31); Chloride 104 mmol/L (98-107); Estimated GFR 54; Glucose 100 mg/dL (83-110); Potassium 3.8 mmol/L (3.5-5.1); Sodium 137 mmol/L (136-145)
== END 2023-12-27 08:25 | disposition home or self-care (01) ==
LOC: LABBT 08:24
PROVIDERS: ATTEND Internal Medicine Cardiovascular Disease
DX: Z01.812 Encounter for preprocedural laboratory examination (principal); I48.91 Unspecified atrial fibrillation
CPT/HCPCS: 80048; 85027

== ENCOUNTER 2023-12-30 12:07 | Day surgery (SDC) | payer MEDICARE ==
[2023-12-27 08:56] VITALS: BMI 27.0
[2023-12-30] MEDS ORDERED: PROPOFOL 20 ML ONE (12:53)
[2023-12-30] MEDS ORDERED: Lidocaine 1% PF 5 ML VIAL ONE (13:27)
== END 2023-12-30 15:00 | disposition home or self-care (01) ==
LOC: SDC 12:07
PROVIDERS: ATTEND Internal Medicine Cardiovascular Disease
PROC: 5A2204Z Restoration of Cardiac Rhythm, Single (ICD-10-PCS; principal; 2023-12-30)
PROC: B246ZZ4 Ultrasonography of Right and Left Heart, Transesophageal (ICD-10-PCS; 2023-12-30)
DX: I48.0 Paroxysmal atrial fibrillation (principal); I49.3 Ventricular premature depolarization; I45.10 Unspecified right bundle-branch block; G45.9 Transient cerebral ischemic attack, unspecified; I10 Essential (primary) hypertension; I08.3 Combined rheumatic disorders of mitral, aortic and tricuspid valves; E78.5 Hyperlipidemia, unspecified; Z79.899 Other long term (current) drug therapy
CPT/HCPCS: 92960; 93005; 93312; J2704; 93010

== ENCOUNTER 2025-03-18 14:14 | Outpatient (CLI) | payer MEDICARE | END 2025-03-18 14:15 | disposition home or self-care (01) | LOC: BICRAD 14:14 | PROVIDERS: ATTEND Family Medicine | DX: M25.551 Pain in right hip (principal); M16.0 Bilateral primary osteoarthritis of hip; M70.62 Trochanteric bursitis, left hip | CPT/HCPCS: 73522 ==